=== PATIENT | male | born 1960 | race Caucasian/White ===

== ENCOUNTER → 2021-08-16 09:03 | Outpatient (CLI) | payer BC, SELFPAY ==
--- NOTE | 2021-08-16 09:30 | XR_ITS ---
PROCEDURE: XR KNEE LT 3V CLINICAL INDICATION: LT MEDIAL KNEE PAIN COMPARISON: No exams were available for comparison FINDINGS: There are mild osteoarthritic changes involving all 3 compartments. Minimal concave deformity involves the lateral tibial plateau with osteosclerosis of the subarticular region and could be related to an old fracture. There is a well-circumscribed calcific density in the suprapatellar region measuring 17 x 7 mm and could be related to a loose fragment in the superior patellar recess.. IMPRESSION: Osteoarthritic changes. Possible old left lateral tibial plateau fracture Suspect loose body in the superior patellar recess Dictated by: Greg Coon MD 08/16/2021 17:02 Greg Coon MD in [facility] 08/16/2021 17:02
--- NOTE | 2021-08-16 09:30 | XR_ITS ---
PROCEDURE: XR HIP RT 2-3V W/PELVIS CLINICAL INDICATION: LOW BACK PAIN OF MULTIPLE SITES OF SPINE W/ SCIATICA COMPARISON: No exams were available for comparison FINDINGS: No fracture or dislocation is evident. No significant degenerative change. No lytic or blastic change. Unremarkable soft tissues. IMPRESSION: No acute findings. Dictated by: Greg Coon MD 08/16/2021 16:47 Greg Coon MD in [facility] 08/16/2021 16:47
--- NOTE | 2021-08-16 09:30 | XR_ITS ---
PROCEDURE: XR LUMBAR SPINE MIN 4V CLINICAL INDICATION: LOW BACK PAIN OF MULTIPLE SITES OF SPINE W/ SCIATICA COMPARISON: No exams were available for comparison FINDINGS: No fracture or dislocation. No lytic or blastic change. There is normal mineralization. Multilevel degenerative disc disease is present from L1-S1. There is 7 mm retrolisthesis of L4 on L5 with severe degenerative disc disease at that level along with facet hypertrophic/arthritic changes. There is 10 mm anterolisthesis of L5 on S1 with severe degenerative disc disease at that level. Degenerative changes are present in the inferior aspect of the left SI joint. IMPRESSION: Severe lumbar spondylosis with degenerative disc disease and facet arthritic changes as detailed above. Dictated by: Greg Coon MD 08/16/2021 10:02 Greg Coon MD in [facility] 08/16/2021 10:02
--- NOTE | 2021-08-16 09:30 | XR_ITS ---
PROCEDURE: XR HIP LT 2-3V W/PELVIS CLINICAL INDICATION: LOW BACK PAIN OF MULTIPLE SITES OF SPINE W/ SCIATICA COMPARISON: No exams were available for comparison FINDINGS: No fracture or dislocation is evident. No significant degenerative change. No lytic or blastic change. Unremarkable soft tissues. IMPRESSION: No acute findings. Dictated by: Greg Coon MD 08/16/2021 16:54 Greg Coon MD in [facility] 08/16/2021 16:54
== END ==
PROVIDERS: PCP Internal Medicine Adolescent Medicine; Visit Provider Internal Medicine Adolescent Medicine
DX: M54.40 Lumbago with sciatica, unspecified side (principal); M25.562 Pain in left knee
CPT/HCPCS: 72110; 73502; 73562